=== PATIENT | male | born 1990 | race Caucasian/White ===

== ENCOUNTER → 2016-11-09 | Outpatient (REF) | payer OTHER ==
[2016-11-09 10:01] LABS: NON PROGRESSIVE MOTILITY (c) 27 %; PROGRESSIVE MOTILITY (a) 17 % (>=32); SPERM ABNORMAL FORMS WBC'S NOTED; TOTAL MOTILITY 44 % (>=40)
[2016-11-09 10:02] LABS: % NORMAL FORMS 4 % (>=4); IMMOTILITY 56 %; SPERM# 36.7 M/Ejac (>=39); TOTAL FUNCTIONAL 0.6 M/Ejac.; TOTAL PROGRESSIVE SPERM 6.1 M/Ejac.
== END ==
LOC: M LAB REF 09:41
PROVIDERS: ATTEND Student in an Organized Health Care Education/Training Program
DX: N46.8 Other male infertility (principal)

== ENCOUNTER 2019-02-23 10:00 | Emergency (ER) | payer OTHER ==
[~2019-02-23] VITALS: Ht 172.7 cm; Wt 104.5 kg
[2019-02-23] MEDS ORDERED: NS 1,000 ML IV ONE (10:30)
[2019-02-23] MEDS ORDERED: methylPREDNISolone INJ 125 MG/2 ML VIAL (J2930) IV ONE (10:30)
[2019-02-23] MEDS ORDERED: FAMOTIDINE INJ 20MG/2ML VIAL (S0028) IVP ONE (10:30)
[2019-02-23] MEDS ORDERED: diphenhydrAMINE INJ 50MG/ML VIAL (J1200) IV ONE (10:30)
[2019-02-23] MEDS ORDERED: cefTRIAXone SOD 1 GM in D5W MINI-BAG PLUS 50 ML IV ONE (10:45)
--- NOTE | 2019-02-23 10:51 | REP ---
Three views neck soft tissues: 02/23/2019. Indication: Epiglottitis. Comparison: None. Findings: The prevertebral soft tissues are unremarkable. There is no swelling of the epiglottis or uvula detected. New straightening of the cervical lordosis which is likely positional. Impression: There is no evidence of epiglottitis or additional acute soft tissue abnormalities of the neck. Electronically Signed by Emanuel Alba DO 02/23/2019 10:43 A
[2019-02-23 11:03] LABS: BASO # 0.1 10^3/uL (0.0-0.2); BASO % 1.3 % (0.0-1.0); EOS # 0.3 10^3/uL (0.0-0.5); EOS % 8.2 % (0.0-3.0); HEMATOCRIT 45.5 % (42.0-52.0); LYMPH # 1.1 10^3/uL (1.5-5.0); LYMPH % 26.9 % (24.0-44.0); MEAN CORPUSCULAR HEMOGLOBIN 31.2 pg (27.0-33.0); MEAN CORPUSCULAR VOLUME 94.6 fl (80.0-96.0); MONO # 0.5 10^3/uL (0.0-0.8); MONO % 13.8 % (0.0-5.0); NEUTROPHILS % 49.8 % (36.0-66.0); PLATELET COUNT, AUTOMATED 215 10^3/uL (150-450); RED BLOOD COUNT 4.81 10^6/uL (4.30-6.10); WHITE BLOOD COUNT 3.9 10^3/uL (4.0-10.0)
[2019-02-23 11:22] LABS: ERYTHROCYTE SEDIMENTATION RATE 5 mm/hr (0-15)
[2019-02-23 11:27] LABS: ALBUMIN 3.9 GM/DL (3.2-5.2); ALT/SGPT 95 U/L (12-78); BILIRUBIN,DIRECT < 0.1 MG/DL (0.0-0.2); BILIRUBIN,TOTAL 0.2 MG/DL (0.2-1.0); BLOOD UREA NITROGEN 14 MG/DL (7-18); C REACTIVE PROTEIN QUANTITATIV < 0.30 MG/DL (0.00-0.30); CALCIUM LEVEL 9.1 MG/DL (8.5-10.1); CARBON DIOXIDE LEVEL 29 MEQ/L (21-32); CHLORIDE LEVEL 111 MEQ/L (98-107); CREATININE FOR GFR 1.15 MG/DL (0.70-1.30); GLOMERULAR FILTRATION RATE > 60.0 (>60); GLUCOSE, FASTING 90 MG/DL (70-100); POTASSIUM SERUM 4.4 MEQ/L (3.5-5.1); SODIUM LEVEL 145 MEQ/L (136-145); TOTAL PROTEIN 7.5 GM/DL (6.4-8.2)
[2019-02-23 12:11] LABS: MONO REFLEX EBV COMP NEGATIVE (NEGATIVE)
[2019-02-23] MEDS ORDERED: AUGM875T28 PO (12:24)
[2019-02-23] MEDS ORDERED: PRED20TA PO (12:24)
[2019-02-23 12:31] VITALS: BP 123/62
[2019-02-25 00:08] LABS: EBV VIRAL CAPSID AG IgG >600.0 U/mL (0.0-17.9); EBV VIRAL CAPSID AG IgM <36.0 U/mL (0.0-35.9)
== END 2019-02-23 12:44 | disposition home or self-care (01) ==
LOC: M ED 10:00
DX: K12.2 Cellulitis and abscess of mouth (principal)
CPT/HCPCS: 70360; 80048; 80076; 85025; 85652; 86140; 86308; 86663; 86664; 86665; 87880; 96365; 96375; 99284; J0696; J1200; J2930

== ENCOUNTER → 2019-05-15 | Outpatient (CLI) | payer OTHER ==
[~2019-05-15] MED LIST: AUGM875T28 PO; PRED20TA PO
--- NOTE | 2019-05-15 07:35 | REP ---
Clinical: Abnormal lung findings. Technique: Axial noncontrast images from the thoracic inlet to the upper abdomen with coronal and sagittal re-formations. Comparison: None. Findings: The bilateral lung alexander are well-aerated, relatively symmetric and clear. No consolidation, nodule or mass lesion. No effusion. No pneumothorax. Tracheobronchial tree is patent and normal. No obvious adenopathy. The mediastinum demonstrates normal thoracic aorta, pulmonary vasculature and heart/pericardium. Surrounding musculoskeletal structures are intact. Normal bilateral adrenal glands identified. Impression: Normal noncontrast chest CT. No acute mediastinal or pleuroparenchymal process appreciated. Electronically Signed by Diogo Hammonds MD 05/15/2019 07:26 A
== END ==
LOC: M RAD 07:11
PROVIDERS: ATTEND Physician Assistant
DX: R91.8 Other nonspecific abnormal finding of lung field (principal)